=== PATIENT | male | born 1975 | race American Indian/Alaskan Native ===

== ENCOUNTER 2020-04-29 14:36 | Emergency (ER) | payer SELFPAY ==
[2020-04-29] MEDS ORDERED: IBUPROFEN 800 MG TAB PO ONE (16:15)
--- NOTE | 2020-04-29 16:19 | Event Note ---
ED Screening Note Date of service: 04/29/20 Time: 16:18 ED Screening Note: Is a 44-year-old male with a history of hypertension who presents the ED complaining of left-sided ankle and lateral knee pain and lump x2 days. Patient states he woke up with the pain to the knee. Patient states pain is gotten so much that he is having difficulty walking. This initial assessment/diagnostic orders/clinical plan/treatment(s) is/are subject to change based on patients health status, clinical progression and re- assessment by fellow clinical providers in the ED. Further treatment and workup at subsequent clinical providers discretion. Patient/guardian urged not to elope from the ED as their condition may be serious if not clinically assessed and managed. Initial orders include: xr ankle, knee 800 mg motrin in triage
--- NOTE | 2020-04-29 16:57 | XRay Report ---
XR ankle 2V LT INDICATION / CLINICAL INFORMATION: Left ankle swelling. COMPARISON: None available. FINDINGS: BONES/JOINT(S): No acute fracture or subluxation. No significant degenerative changes. SOFT TISSUES: There is soft tissue swelling in the lateral ankle. ADDITIONAL FINDINGS: None. Signer Name: Christopher Liz MD Signed: 04/29/2020 4:52 PM Workstation Name: [id number]
--- NOTE | 2020-04-29 16:57 | XRay Report ---
XR knee 1-2V LT INDICATION / CLINICAL INFORMATION: pain to lateral knee with lump. COMPARISON: None available. FINDINGS: BONES/JOINT(S): No acute fracture or subluxation. No significant degenerative changes. SOFT TISSUES: No significant abnormality. ADDITIONAL FINDINGS: None. Signer Name: Christopher Liz MD Signed: 04/29/2020 4:53 PM Workstation Name: [id number]
[2020-04-29] MEDS ORDERED: ONDANSETRON 4 MG ODT TAB PO ONE (20:14)
[2020-04-29] MEDS ORDERED: HYDROcodone/ACETAMINOPHEN 7.5-325MG TAB PO ONE (20:14)
[2020-04-29] MEDS ORDERED: COLCHICINE 0.6 MG CAP PO ONE (20:14)
[2020-04-29] MEDS ORDERED: predniSONE 20 MG TAB PO ONE (20:14)
--- NOTE | 2020-04-29 20:30 | Emergency Department Report ---
ED Extremity Problem HPI - General Chief complaint: Pain General Stated complaint: GOUT Source: patient Mode of arrival: Ambulatory Limitations: No Limitations - History of Present Illness Initial comments: Patient is a 44-year-old -[place]os[place] male with a history of hypertension, chronic gouty arthropathy and osteoarthritis who presents to the ED with acute exacerbation of his chronic pain and gout flare characterized by severe left knee pain for the last 2 days. Patient states that the pain is worse with ambulation or even at rest. Patient states that he is unable to sleep because of severe left knee pain. Patient states that he has been eating a lot of seafood and red meat in the last week and suspects that this may have exacerbated his chronic gout flare. Patient denies lower back pain, heavy lifting, fall, traumatic injury, headache, dizziness, syncope, chest pain, shortness of breath, fever and chills. MD Complaint: extremity pain (left knee joint pain), extremity swelling (Left ankle swelling), joint paint (Left knee pain), other (Gouty arthropathy flare) -: Sudden, days(s) (2) Location: left, lower extremity (Left knee), knee History of Same: Yes (Chronic gout) -: Yes arthralgia (Left knee pain) Radiation: none Severity scale (0 -10): 10 Quality: aching, sharp Consistency: constant Improves with: nothing Worsens with: weight bearing, walking, palpation Associated Symptoms: denies other symptoms, arthralgias (Left knee pain). denies: chest pain, shortness of breath, fever, myalgias, rash - Related Data Previous Rx's Medication Instructions Recorded Last Taken Type Colchicine 0.6 mg PO Q8H PRN #30 capsule 04/29/20 Unknown Rx Indomethacin 50 mg PO Q8H PRN #45 capsule 04/29/20 Unknown Rx predniSONE [Deltasone] 60 mg PO QDAY #15 tab 04/29/20 Unknown Rx traMADoL [Ultram] 50 mg PO Q6HR PRN #12 tablet 04/29/20 Unknown Rx Allergies Allergy/AdvReac Type Severity Reaction Status Date / Time No Known Allergies Allergy Unverified 04/29/20 16:53 ED Review of Systems ROS: Stated complaint: GOUT Other details as noted in HPI Constitutional: denies: chills, fever Eyes: denies: eye pain, eye discharge, vision change ENT: denies: ear pain, throat pain Respiratory: denies: cough, shortness of breath, wheezing Cardiovascular: denies: chest pain, palpitations Endocrine: no symptoms reported Gastrointestinal: denies: abdominal pain, nausea, diarrhea Genitourinary: denies: urgency, dysuria Musculoskeletal: arthralgia (Left knee pain). denies: back pain, joint swelling Skin: denies: rash, lesions Neurological: denies: headache, weakness, paresthesias Psychiatric: denies: anxiety, depression Hematological/Lymphatic: denies: easy bleeding, easy bruising ED Past Medical Hx - Past Medical History Previous Medical History?: Yes Hx Hypertension: Yes Additional medical history: gout - Surgical History Past Surgical History?: No - Social History Smoking Status: Never Smoker Substance Use Type: Marijuana - Medications Home Medications: Home Medications Medication Instructions Recorded Confirmed Last Taken Type Colchicine 0.6 mg PO Q8H PRN #30 capsule 04/29/20 Unknown Rx Indomethacin 50 mg PO Q8H PRN #45 capsule 04/29/20 Unknown Rx predniSONE [Deltasone] 60 mg PO QDAY #15 tab 04/29/20 Unknown Rx traMADoL [Ultram] 50 mg PO Q6HR PRN #12 tablet 04/29/20 Unknown Rx ED Physical Exam - General Limitations: No Limitations General appearance: alert, in no apparent distress - Head Head exam: Present: atraumatic, normocephalic, normal inspection - Eye Eye exam: Present: normal appearance, PERRL Pupils: Present: normal accommodation - ENT ENT exam: Present: normal exam, normal orophraynx, mucous membranes moist, TM's normal bilaterally, normal external ear exam - Neck Neck exam: Present: normal inspection, full ROM. Absent: tenderness - Respiratory Respiratory exam: Present: normal lung sounds bilaterally. Absent: respiratory distress, wheezes, rales, rhonchi, stridor, chest wall tenderness, accessory muscle use, decreased breath sounds, prolonged expiratory - Cardiovascular Cardiovascular Exam: Present: regular rate, normal rhythm, normal heart sounds. Absent: systolic murmur, diastolic murmur, rubs, gallop - GI/Abdominal GI/Abdominal exam: Present: soft, normal bowel sounds. Absent: tenderness, guarding, rebound, hyperactive bowel sounds, hypoactive bowel sounds - Extremities Exam Extremities exam: Present: normal inspection, full ROM, tenderness (Palpable left lateral knee tenderness with mild swelling), normal capillary refill, joint swelling (Left ankle and knee swelling). Absent: calf tenderness - Back Exam Back exam: Present: normal inspection, full ROM. Absent: tenderness, CVA tenderness (R), paraspinal tenderness - Neurological Exam Neurological exam: Present: alert, oriented X3, CN II-XII intact, normal gait, reflexes normal - Psychiatric Psychiatric exam: Present: normal affect, normal mood - Skin Skin exam: Present: warm, dry, intact, normal color. Absent: rash ED Course Vital Signs 04/29/20 04/29/20 04/29/20 14:42 16:15 16:54 Temperature 98.4 F Pulse Rate 118 H Respiratory 16 20 Rate Blood Pressure 198/145 192/143 [Right] O2 Sat by Pulse 98 Oximetry ED Medical Decision Making - Radiology Data Findings [facility] [address] [place] [address] XRay Report Signed Patient: TRISTON HERNANDEZ MR#: [id number] : 1975 Acct:[id number] Age/Sex: 44 / M ADM Date: 04/29/20 Loc: ED Attending Dr: Ordering Physician: SLIME DORSEY Date of Service: 04/29/20 Procedure(s): XR knee 1-2V LT Accession Number(s): [id number] cc: SLIME DORSEY Fluoro Time In Minutes: XR knee 1-2V LT INDICATION / CLINICAL INFORMATION: pain to lateral knee with lump. COMPARISON: None available. FINDINGS: BONES/JOINT(S): No acute fracture or subluxation. No significant degenerative changes. SOFT TISSUES: No significant abnormality. ADDITIONAL FINDINGS: None. Signer Name: Christopher Liz MD Signed: 04/29/2020 4:53 PM Workstation Name: [id number] Transcribed By: JANNY Dictated By: Christopher Liz MD Electronically Authenticated By: Christopher Liz MD Signed Date/Time: 04/29/201652 DD/ 52 TD/TT: Findings [facility] [address] [place] [address] XRay Report Signed Patient: TRISTON HERNANDEZ MR#: [id number] : 1975 Acct:[id number] Age/Sex: 44 / M ADM Date: 04/29/20 Loc: ED Attending Dr: Ordering Physician: SLIME DORSEY Date of Service: 04/29/20 Procedure(s): XR ankle 2V LT Accession Number(s): [id number] cc: SLIME DORSEY Fluoro Time In Minutes: XR ankle 2V LT INDICATION / CLINICAL INFORMATION: Left ankle swelling. COMPARISON: None available. FINDINGS: BONES/JOINT(S): No acute fracture or subluxation. No significant degenerative changes. SOFT TISSUES: There is soft tissue swelling in the lateral ankle. ADDITIONAL FINDINGS: None. Signer Name: Christopher Liz MD Signed: 04/29/2020 4:52 PM Workstation Name: [id number] Transcribed By: JANNY Dictated By: Christopher Liz MD Electronically Authenticated By: Christopher Liz MD Signed Date/Time: 04/29/201651 DD/ 51 TD/TT: - Medical Decision Making This is a 44-year-old -[place]os[place] male with a history of hypertension, chronic gouty arthropathy and osteoarthritis who presents to the ED with acute exacerbation of his chronic pain and gout flare characterized by severe left knee pain for the last 2 days. Patient states that the pain is worse with ambulation or even at rest. Patient states that he is unable to sleep because of severe left knee pain. Patient states that he has been eating a lot of seafood and red meat in the last week and suspects that this may have exacerbated his chronic gout flare. In the ED, patient is alert and oriented x3 and is not in distress but anxious, and tachycardic and appears in pain. Patient was treated for pain in the ED and left knee and left ankle x-rays showed no acute fractures or subluxations. On reevaluation, patient's pain is well controlled with medications. Patient was discharged home on pain medications and advised to follow-up with his primary care physician in 5 to 7 days for reevaluation. Patient was was advised to avoid seafood for red meat. - Differential Diagnosis Gouty arthropathy; Osteoarthritis; Muscle strain; tendonitis Critical care attestation.: If time is entered above; I have spent that time in minutes in the direct care of this critically ill patient, excluding procedure time. ED Disposition Clinical Impression: Acute gouty arthropathy, Left lateral knee pain, Chronic osteoarthritis Disposition: TO HOME OR SELFCARE Is pt being admited?: No Does the pt Need Aspirin: No Condition: Stable Instructions: Arthralgia (ED), Acute Gouty Arthritis (ED), Knee Pain (ED) Additional Instructions: Take medication with food, drink plenty of fluids and follow-up with your primary care physician in 7 to 10 days for reevaluation. Return to the ED immediately if symptoms get worse. Prescriptions: Colchicine 0.6 mg PO Q8H PRN #30 capsule PRN Reason: Pain , Severe (7-10) predniSONE [Deltasone] 60 mg PO QDAY #15 tab Indomethacin 50 mg PO Q8H PRN #45 capsule PRN Reason: Pain , Severe (7-10) traMADoL [Ultram] 50 mg PO Q6HR PRN #12 tablet PRN Reason: Pain Referrals: [facility] [Provider Group] - 3-5 Days Time of Disposition: 20:32 Print Language: DJIBOUTIAN
[2020-04-29 21:02] VITALS: BP 197/152
== END 2020-04-29 21:01 | disposition home or self-care (01) ==
LOC: ED 14:36
DX: M17.12 Unilateral primary osteoarthritis, left knee (principal); M10.9 Gout, unspecified; I10 Essential (primary) hypertension; F12.10 Cannabis abuse, uncomplicated
CPT/HCPCS: 73560; 73600; 99283; J7512; Q0162